=== PATIENT | male | born 1940 | race Caucasian/White ===

== ENCOUNTER 2019-05-06 12:35 | Emergency (ER) | payer OTHER ==
[~2019-05-06] VITALS: Ht 182.9 cm; Wt 84.0 kg
[~2019-05-06 12:35] MED LIST: ALTA10CA PO; ASPI325T; DETR4CAP; KETO-28; MULTIVIT; NORV5TAB PO; PLAV75TA2; PROT1TAB2; SEPT800T; TYLENOL #3; ZOCO80TA; [UNRECOGNIZED DRUG - OTHER]
[2019-05-06] MEDS ORDERED: ATOR1TAB21 PO (12:53)
[2019-05-06] MEDS ORDERED: ARIC1TAB2 PO (12:53)
[2019-05-06] MEDS ORDERED: LORA0.5T11 PO (12:54)
[2019-05-06] MEDS ORDERED: NS 1,000 ML IV SCH (13:06)
[2019-05-06 13:56] LABS: BASO % 0.3 % (0.0-1.0); EOS % 0.3 % (0.0-3.0); HEMATOCRIT 38.8 % (42.0-52.0); HEMOGLOBIN 13.8 g/dl (13.5-17.5); LYMPH # 1.6 10^3/uL (1.5-4.5); LYMPH % 27.1 % (24.0-44.0); MEAN CORPUSCULAR HEMOGLOBIN 33.7 pg (27.0-33.0); MEAN CORPUSCULAR HGB CONC 35.6 g/dl (32.0-36.5); MEAN CORPUSCULAR VOLUME 94.6 fl (80.0-96.0); MONO # 0.5 10^3/uL (0.0-0.8); NEUTROPHILS # 3.8 10^3/uL (1.8-7.7); PLATELET COUNT, AUTOMATED 138 10^3/uL (150-450)
--- NOTE | 2019-05-06 14:33 | REP ---
CT BRAIN WITHOUT CONTRAST: HISTORY: Altered mental status. No comparison brain imaging. CT FINDINGS: Preliminary digital scout sniper radiograph is unremarkable. Bone window settings show an intact bony calvarium. Visualized paranasal sinuses are clear. Vascular calcification is noted. On soft tissue window settings, there is moderate diffuse cerebral atrophy noted. There is no evidence of intracranial hemorrhage. No infarct is seen. No mass, extra-axial fluid collection, or midline shift is observed. IMPRESSION: Moderate diffuse atrophy. Mild small vessel changes and vascular calcification. No acute intracranial abnormality. Electronically Signed by Fernando Bradford MD 05/06/2019 04:57 P
[2019-05-06 14:38] LABS: AMPHETAMINES LEVEL URINE NEGATIVE (NEGATIVE); BARBITURATES URINE NEGATIVE (NEGATIVE); BENZODIAZEPINES URINE NEGATIVE (NEGATIVE); CANNABINOIDS URINE NEGATIVE (NEGATIVE); COCAINE METABOLITE URINE NEGATIVE (NEGATIVE); METHADONE URINE NEGATIVE (NEGATIVE); OPIATES URINE NEGATIVE (NEGATIVE); PHENCYCLIDINE URINE NEGATIVE (NEGATIVE)
[2019-05-06 14:46] LABS: ACETAMINOPHEN LEVEL < 2.0 UG/ML (10.0-30.0); ALBUMIN 3.7 GM/DL (3.2-5.2); ALT/SGPT 20 U/L (12-78); BILIRUBIN,DIRECT 0.2 MG/DL (0.0-0.2); BILIRUBIN,TOTAL 0.7 MG/DL (0.2-1.0); BLOOD UREA NITROGEN 10 MG/DL (7-18); CALCIUM LEVEL 8.3 MG/DL (8.8-10.2); CARBON DIOXIDE LEVEL 30 MEQ/L (21-32); CHLORIDE LEVEL 109 MEQ/L (98-107); CK-MB VALUE MASS 1.2 NG/ML (<3.6); CPK CREATINE PHOSPHOKINASE 66 U/L (39-308); CREATININE FOR GFR 0.92 MG/DL (0.70-1.30); ETHYL ALCOHOL (ETHANOL) < 0.003 % (0.000-0.010); GLOMERULAR FILTRATION RATE > 60.0 (>42); GLUCOSE, FASTING 82 MG/DL (70-100); MB/CK RELATIVE INDEX 1.82 (< OR =4); POTASSIUM SERUM 3.8 MEQ/L (3.5-5.1); SALICYLATE LEVEL < 1.7 MG/DL (5.0-30.0); SODIUM LEVEL 143 MEQ/L (136-145); TOTAL PROTEIN 6.9 GM/DL (6.4-8.2); TROPONIN I < 0.02 NG/ML (< 0.10)
--- NOTE | 2019-05-06 15:01 | REP ---
CHEST, SINGLE VIEW: Single view of the chest is performed. There is no acute infiltrate. There is mild cardiomegaly. There is tortuosity of the thoracic aorta. The mediastinal silhouette is otherwise unremarkable. IMPRESSION: No acute infiltrate. Electronically Signed by Hosea Reid MD 05/08/2019 10:18 A
[2019-05-06] MEDS ORDERED: LORazepam 2 MG/ML VIAL (J2060) IV STA (15:11)
[2019-05-06] MEDS ORDERED: ATIV1TAB10 PO (16:22)
[2019-05-06 16:43] VITALS: BP 168/82
--- NOTE | 2019-05-07 03:35 | ECGEPIP ---
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
== END 2019-05-06 17:00 | disposition home or self-care (01) ==
LOC: M ED 12:35 → EDBD 12:35 → M ED 17:00
DX: F03.90 Unspecified dementia, unspecified severity, without behavioral disturbance, psychotic disturbance, mood disturbance, and anxiety (principal); R45.1 Restlessness and agitation; I25.10 Atherosclerotic heart disease of native coronary artery without angina pectoris; Z79.899 Other long term (current) drug therapy
CPT/HCPCS: 70450; 71045; 80048; 80076; 80307; 81001; 82550; 82553; 83605; 84443; 84484; 85025; 93005; 93041; 94760; 96374; 99285; G0480; J2060